=== PATIENT | female | born 1980 | race Two or more races ===

== ENCOUNTER → 2017-05-16 | Outpatient (CLI) | payer OTHER ==
[~2017-05-16] MED LIST: /MOM400 PO; COLA50CA3 PO; HUMA100I SC; IBUP600T26 PO; INSUDET SC; ISOVUE-370 76% 100ML VIAL (Q9967) As Ordered ONE; LEVEMIR INSULIN SQ; LEVO25TA5 PO; NORCOTAB PO; NOVALOG SC; SYNT50TA PO; novolog insulin SC
--- NOTE | 2017-05-16 13:00 | REP ---
Clinical: Hematuria. Technique: Axial precontrast, contrast enhanced, and delayed images of the abdomen and pelvis from the lung bases to the pubic symphysis using 100 ml Isovue 370 intravenous contrast material with coronal and sagittal re-formations. Findings: Evaluation of the urinary tract system in all phases of enhancement appears normal. The kidneys demonstrate symmetric cortical enhancement and there is evidence for a symmetric excretion to the collecting system. No hydroureteronephrosis, intrarenal or obstructing ureteral calculi. No renal mass lesion or cystic abnormalities are appreciated. No perinephric fluid collections identified. Bladder is unremarkable. Liver, spleen, pancreas, and bilateral adrenal glands are normal. Cholelithiasis noted without CT evidence for acute cholecystitis. The enteric system is without obstruction or acute inflammatory process. Pelvis demonstrates normal bladder and age-appropriate uterus/adnexa. Evidence for tubal ligation. No ascites. No adenopathy. No free air. Abdominal aorta without aneurysm or dissection. Surrounding musculoskeletal structures are intact. Lung bases are clear. Impression: 1. Normal appearance to the urinary tract system without hydroureteronephrosis, nephroureterolithiasis, or obvious abnormality. 2. Cholelithiasis without evidence for acute cholecystitis. Signed by Reji Schneider MD 05/16/2017 12:52 P
== END ==
LOC: M RAD 10:52
PROVIDERS: ATTEND Nurse Practitioner Women's Health
DX: R31.0 Gross hematuria (principal); K80.80 Other cholelithiasis without obstruction
CPT/HCPCS: 74178; Q9967

== ENCOUNTER → 2018-11-24 | Outpatient (REF) ==
[~2018-11-24] MED LIST changes: -/MOM400 PO; -ISOVUE-370 76% 100ML VIAL (Q9967) As Ordered ONE; +MILK10SU PO
--- NOTE | 2018-11-24 14:46 | REP ---
CERVICAL SPINE, THREE VIEWS: HISTORY: Degenerative disc disease. There is no acute fracture or subluxation. The intervertebral discs are normal in height. IMPRESSION: There is no acute fracture or subluxation. Electronically Signed by Richmond Watson MD 11/24/2018 02:48 P
--- NOTE | 2018-11-24 14:48 | REP ---
PARTIAL LUMBAR SPINE, THREE VIEWS: HISTORY: Degenerative disc disease. There is no acute fracture or subluxation. The L3-4 through L5-S1 intervertebral discs are decreased in height consistent with disc degeneration. Osteophytes are present on L4 and L5. Calcification is present in the right upper quadrant consistent with cholelithiasis. An IUD is present in the pelvis. IMPRESSION: Degenerative change as described above. Electronically Signed by Richmond Watson MD 11/24/2018 02:51 P
== END ==
LOC: M SMT 13:37
PROVIDERS: ATTEND Internal Medicine
DX: M51.36 Other intervertebral disc degeneration, lumbar region (principal)